=== PATIENT | male | born 1955 | race Caucasian/White ===

== ENCOUNTER 2017-08-09 15:17 | Observation (INO) | payer BC ==
[2017-08-09] MEDS ORDERED: ASPIRIN 81 MG TABLET, CHEWABLE PO ONE (15:42)
--- NOTE | 2017-08-09 15:43 | ER Document Report ---
ED Medical Screen (RME) - General Chief Complaint: Chest Pain Stated Complaint: CHEST PAIN Time Seen by Provider: 08/09/17 15:41 Notes: Patient states he has had chest pain today that goes to his right jaw. He states he has had a stress test several years ago that was normal but nothing recent. He states he did not feel sweaty nauseous or short of breath with the pain. He states that he does not smoke. He has diabetes. no htn TRAVEL OUTSIDE OF THE [place] IN LAST 30 DAYS: No - Related Data Allergies/Adverse Reactions: No Known Allergies Allergy (Verified 08/09/17 15:25) Past Medical History - Social History Chew tobacco use (# tins/day): No Frequency of alcohol use: None Drug Abuse: None Endocrine Medical History: Reports: Hx Diabetes Mellitus Type 2 Renal/ Medical History: Denies: Hx Peritoneal Dialysis GI Medical History: Reports: Hx Diverticulitis. Denies: Hx Ulcerative Colitis - Immunizations Hx Diphtheria, Pertussis, Tetanus Vaccination: Yes - <5 years Physical Exam - Vital signs Vitals: Temp Pulse Resp BP Pulse Ox 97.9 F 72 14 132/90 H 97 08/09/17 15:25 08/09/17 15:25 08/09/17 15:25 08/09/17 15:25 08/09/17 15:25 Course - Vital Signs Vital signs: Temp Pulse Resp BP Pulse Ox 97.9 F 72 14 132/90 H 97 08/09/17 15:25 08/09/17 15:25 08/09/17 15:25 08/09/17 15:25 08/09/17 15:25
[2017-08-09 16:06] LABS: ABSOLUTE BASOPHILS # (AUTO) 0.1 10^3/uL (0.0-0.2); ABSOLUTE EOSINOPHILS # (AUTO) 0.1 10^3/uL (0.0-0.6); ABSOLUTE LYMPHOCYTES (AUTO) 2.4 10^3/uL (0.5-4.7); ABSOLUTE MONOCYTES (AUTO) 0.5 10^3/uL (0.1-1.4); ABSOLUTE NEUT (AUTO) 5.2 10^3/uL (1.7-8.2); BASOPHILS % (AUTO) 0.9 % (0-2); EOSINOPHILS % (AUTO) 1.7 % (0-6); HEMATOCRIT 44.4 % (37.9-51.0); HEMOGLOBIN 15.8 g/dL (13.5-17.0); LYMPHOCYTES % (AUTO) 28.5 % (13-45); MEAN CORPUSCULAR HEMOGLOBIN 29.7 pg (27.0-33.4); MEAN CORPUSCULAR HGB CONC 35.5 g/dL (32.0-36.0); MEAN CORPUSCULAR VOLUME 84 fl (80-97); MONOCYTES % (AUTO) 6.1 % (3-13); RED BLOOD COUNT 5.31 10^6/uL (4.35-5.55); RED CELL DISTRIBUTION WIDTH 13.5 % (11.5-14.0); SEGMENTED NEUTROPHILS % (AUTO) 62.8 % (42-78); WHITE BLOOD COUNT 8.3 10^3/uL (4.0-10.5)
--- NOTE | 2017-08-09 16:13 | RADIOLOGY REPORT (SQ) ---
EXAM DESCRIPTION: CHEST PA/LAT COMPLETED DATE/TIME: 08/09/2017 3:59 pm REASON FOR STUDY: cp COMPARISON: 01/16/2016 EXAM PARAMETERS: NUMBER OF VIEWS: two views TECHNIQUE: Digital Frontal and Lateral radiographic views of the chest acquired. RADIATION DOSE: NA LIMITATIONS: none FINDINGS: LUNGS AND PLEURA: No opacities, masses or pneumothorax. No pleural effusion. MEDIASTINUM AND HILAR STRUCTURES: No masses or contour abnormalities. HEART AND VASCULAR STRUCTURES: Heart normal size. No evidence for failure. BONES: No acute findings. HARDWARE: None in the chest. OTHER: No other significant finding. IMPRESSION: NO SIGNIFICANT RADIOGRAPHIC FINDING IN THE CHEST. TECHNICAL DOCUMENTATION: JOB ID: [id number] [employer]- All Rights Reserved
[2017-08-09 16:27] LABS: ALANINE AMINOTRANSFERASE 44 U/L (21-72); ALBUMIN 4.4 g/dL (3.5-5.0); ALKALINE PHOSPHATASE 120 U/L (38-126); ANION GAP 16 (5-19); ASPARTATE AMINO TRANSFERASE 25 U/L (17-59); BILIRUBIN,DIRECT 0.3 mg/dL (0.0-0.4); BILIRUBIN,TOTAL 0.8 mg/dL (0.2-1.3); BLOOD UREA NITROGEN 16 mg/dL (7-20); CALCIUM 9.4 mg/dL (8.4-10.2); CARBON DIOXIDE 23 mmol/L (22-30); CHLORIDE 99 mmol/L (98-107); CREATININE RESULT 0.86 mg/dL (0.52-1.25); GLUCOSE 169 mg/dL (75-110); POTASSIUM 4.1 mmol/L (3.6-5.0); SODIUM 137.7 mmol/L (137-145)
--- NOTE | 2017-08-09 16:58 | ER Document Report ---
ED Cardiac - General Chief Complaint: Chest Pain Stated Complaint: CHEST PAIN Time Seen by Provider: 08/09/17 15:41 Notes: The patient is a 61-year-old male, past medical history NIDDM, 2 prior spontaneous PTX, family history of congestive heart failure in father, presents with substernal chest tightness with radiation to his right jaw started while he was at rest at 14:45 earlier today. He had this 15 years ago and had a negative stress test. Patient was given aspirin and it resolved. He denies any current chest pain. Patient denies shortness of breath, leg swelling, cough , nausea, vomiting, back pain or fevers. TRAVEL OUTSIDE OF THE [place] IN LAST 30 DAYS: No - Related Data Allergies/Adverse Reactions: No Known Allergies Allergy (Verified 08/09/17 15:25) Past Medical History - General Information source: Patient - Social History Smoking Status: Never Smoker Chew tobacco use (# tins/day): No Frequency of alcohol use: None Drug Abuse: None Family History: CAD - Father Patient has suicidal ideation: No Patient has homicidal ideation: No Endocrine Medical History: Reports: Hx Diabetes Mellitus Type 2 Renal/ Medical History: Denies: Hx Peritoneal Dialysis GI Medical History: Reports: Hx Diverticulitis. Denies: Hx Ulcerative Colitis - Immunizations Hx Diphtheria, Pertussis, Tetanus Vaccination: Yes - <5 years Review of Systems - Review of Systems Notes: REVIEW OF SYSTEMS: CONSTITUTIONAL: -fevers, -chills EENT: -eye pain, -difficulty swallowing, -nasal congestion CARDIOVASCULAR: +chest pain, -syncope. RESPIRATORY: -cough, -SOB GASTROINTESTINAL: -abdominal pain, - nausea, -vomiting, -diarrhea GENITOURINARY: -dysuria, -hematuria MUSCULOSKELETAL: -back pain, -neck pain SKIN: -rash or skin lesions. HEMATOLOGIC: -easy bruising or bleeding. LYMPHATIC: -swollen, enlarged glands. NEUROLOGICAL: -altered mental status or loss of consciousness, -headache, - neurologic symptoms PSYCHIATRIC: -anxiety, -depression. ALL OTHER SYSTEMS REVIEWED AND NEGATIVE. Physical Exam - Vital signs Vitals: Temp Pulse Resp BP Pulse Ox 97.9 F 72 14 132/90 H 97 08/09/17 15:25 08/09/17 15:25 08/09/17 15:25 08/09/17 15:25 08/09/17 15:25 - Notes Notes: PHYSICAL EXAMINATION: GENERAL: Well-appearing, well-nourished and in no acute distress. HEAD: Atraumatic, normocephalic. EYES: Pupils equal round and reactive to light, extraocular movements intact, sclera anicteric, conjunctiva are normal. ENT: nares patent, oropharynx clear without exudates. Moist mucous membranes. NECK: Normal range of motion, supple without lymphadenopathy LUNGS: Breath sounds clear to auscultation bilaterally and equal. No wheezes rales or rhonchi. HEART: Regular rate and rhythm without murmurs ABDOMEN: Soft, nontender, normoactive bowel sounds. No guarding, no rebound. No masses appreciated. EXTREMITIES: Normal range of motion, no pitting or edema. No cyanosis. NEUROLOGICAL: Cranial nerves grossly intact. Normal speech, normal gait. Normal sensory and motor exams. PSYCH: Normal mood, normal affect. SKIN: Warm, Dry, normal turgor, no rashes or lesions noted. Course - Re-evaluation Re-evalutation: Patient is currently chest pain-free in the ER. His EKG shows borderline T- wave abnormalities in the inferior leads, but no evidence of a STEMI. His first troponin is negative and rest of blood work is also unremarkable. His chest x-ray does not show any acute abnormalities. His HEART score is 4 (1 for age, 1 for risk factors, 2 for story). His story is not consistent with PE or aortic dissection at this time. Patient requires observation admission for further evaluation and treatment of his chest pain. He received ASA in the ER. - Vital Signs Vital signs: Temp Pulse Resp BP Pulse Ox 97.9 F 72 14 132/90 H 97 08/09/17 15:25 08/09/17 15:25 08/09/17 15:25 08/09/17 15:25 08/09/17 15:25 - Laboratory Result Diagrams: 08/09/17 15:46 08/09/17 15:46 Laboratory results interpreted by me: 08/09/17 15:46 Glucose 169 H - Diagnostic Test Radiology reviewed: Image reviewed, Reports reviewed Radiology results interpreted by me: CXR: NAD - EKG Interpretation by Me EKG shows normal: Sinus rhythm, [place], Intervals, QRS Complexes When compared to previous EKG there are: Previous EKG unavailable Additional EKG results interpreted by me: T-wave inversions in inferior leads Discharge - Discharge Clinical Impression: Chest pain Qualifiers: Chest pain type: unspecified Qualified Code(s): R07.9 - Chest pain, unspecified Condition: Stable Disposition: ADMITTED OBSERVATION Admitting Provider: [facility] Unit Admitted: Telemetry
[2017-08-09] MEDS ORDERED: OXYCODONE-ACETAMINOPHEN 5-325 MG TABLET PO PRN (17:37)
[2017-08-09] MEDS ORDERED: NORMAL SALINE 1000 ML 1,000 ML IV PRN (17:37)
[2017-08-09] MEDS ORDERED: ACETAMINOPHEN 325 MG TABLET PO PRN (17:37)
[2017-08-09] MEDS ORDERED: DEXTROSE 50%-WATER 25 GM/50 ML DISP.SYRIN IV PRN ×4 (17:42→17:44)
[2017-08-09] MEDS ORDERED: DEXTROSE 40% GEL 15 GM TUBE PO PRN ×5 (17:42→23:11)
[2017-08-09] MEDS ORDERED: GLUCAGON,HUMAN RECOMB 1 MG INJ SUBCUT PRN (17:42)
[2017-08-09] MEDS ORDERED: INSULIN REG, HUMAN 100 UNIT/ML 3 ML VIAL (PYX) SUBCUT PRN (17:44)
[2017-08-09] MEDS ORDERED: GLUCAGON,HUMAN RECOMB 1 MG INJ IM PRN ×2 (17:44→23:11)
[2017-08-09] MEDS ORDERED: NITROGLYCERIN 0.4 MG/TAB 25 TAB/BOTTLE SL PRN (17:56)
--- NOTE | 2017-08-09 17:56 | PDOC H&P ---
History of Present Illness Admission Date/PCP: 08/09/17 17:04 Patient complains of: chest pain at rest History of Present Illness: OBED FELDER is a 61 year old male presents to the hospital with complaint of chest pain at rest today that lasted for 30 mins. Pt states that it was sternal pain. Pt states that he has had chest pain before about 6 months ago. Pt states that he was at rest when that chest pain occurred. Pt states that has had a stress test 15 years ago. Pt states that he felt he should come to the hospital to have this checked out. Pt states that chest pain radiated to his jaw. Pt states that he did feel a little short of breath as well. Past Medical History Cardiac Medical History: Reports: Hyperlipidema Pulmonary Medical History: Reports: Other - Spontaneous Pneumothorax Endocrine Medical History: Reports: Diabetes Mellitus Type 2 GI Medical History: Reports: Diverticulitis Denies: Ulcerative Colitis Social History Smoking Status: Former Smoker - Stopped 15 years ago Frequency of Alcohol Use: Occasional Hx Recreational Drug Use: No Drugs: None Family History Family History: CAD - Father Parental Family History Reviewed: Yes Children Family History Reviewed: Yes Sibling(s) Family History Reviewed.: Yes Medication/Allergy Home Medications: Metformin HCl [Glucophage 500 mg Tablet] 1,000 mg PO BID 01/13/16 Omeprazole [Prilosec] 40 mg PO QAM 01/13/16 Allergies/Adverse Reactions: No Known Allergies Allergy (Verified 08/09/17 15:25) Review of Systems Constitutional: ABSENT: chills, fever(s), headache(s), weight gain, weight loss Eyes: ABSENT: visual disturbances Ears: ABSENT: hearing changes Cardiovascular: PRESENT: chest pain. ABSENT: dyspnea on exertion, edema, orthropnea, palpitations Respiratory: PRESENT: dyspnea. ABSENT: cough, hemoptysis Gastrointestinal: ABSENT: abdominal pain, constipation, diarrhea, hematemesis, hematochezia, nausea, vomiting Genitourinary: ABSENT: dysuria, hematuria Musculoskeletal: ABSENT: joint swelling Integumentary: ABSENT: rash, wounds Neurological: ABSENT: abnormal gait, abnormal speech, confusion, dizziness, focal weakness, syncope Psychiatric: ABSENT: anxiety, depression, homidical ideation, suicidal ideation Endocrine: ABSENT: cold intolerance, heat intolerance, polydipsia, polyuria Hematologic/Lymphatic: ABSENT: easy bleeding, easy bruising Physical Exam Vital Signs: Temp Pulse Resp BP Pulse Ox 97.9 F 72 14 132/90 H 97 08/09/17 15:25 08/09/17 15:25 08/09/17 15:25 08/09/17 15:25 08/09/17 15:25 General appearance: PRESENT: no acute distress, well-developed, well-nourished Head exam: PRESENT: atraumatic, normocephalic Eye exam: PRESENT: conjunctiva pink, EOMI, PERRLA. ABSENT: scleral icterus Ear exam: PRESENT: normal external ear exam Mouth exam: PRESENT: moist, tongue midline Neck exam: ABSENT: carotid bruit, JVD, lymphadenopathy, thyromegaly Respiratory exam: PRESENT: clear to auscultation zeus. ABSENT: rales, rhonchi, wheezes Cardiovascular exam: PRESENT: RRR. ABSENT: diastolic murmur, rubs, systolic murmur Pulses: PRESENT: normal dorsalis pedis pul Vascular exam: PRESENT: normal capillary refill GI/Abdominal exam: PRESENT: normal bowel sounds, soft. ABSENT: distended, guarding, mass, organolmegaly, rebound, tenderness Rectal exam: PRESENT: deferred Extremities exam: PRESENT: full ROM. ABSENT: calf tenderness, clubbing, pedal edema Neurological exam: PRESENT: alert, awake, oriented to person, oriented to place , oriented to time, oriented to situation, CN II-XII grossly intact. ABSENT: motor sensory deficit Psychiatric exam: PRESENT: appropriate affect, normal mood. ABSENT: homicidal ideation, suicidal ideation Skin exam: PRESENT: dry, intact, warm. ABSENT: cyanosis, rash Results Impressions: Chest X-Ray 08/09/17 15:41 IMPRESSION: NO SIGNIFICANT RADIOGRAPHIC FINDING IN THE CHEST. Assessment & Plan - Diagnosis (1) Chest pain Qualifiers: Chest pain type: unspecified Qualified Code(s): R07.9 - Chest pain, unspecified Is this a current diagnosis for this admission?: Yes Plan: Will check cardiac markers, Echo, stress test in am, and consult Cardiology. (2) DM type 2 (diabetes mellitus, type 2) Is this a current diagnosis for this admission?: Yes Plan: Will order SSI. Will check HbgA1c. (3) HLD (hyperlipidemia) Is this a current diagnosis for this admission?: Yes Plan: Will check lipid profile. (4) Obesity (BMI 30.0-34.9) Is this a current diagnosis for this admission?: Yes Plan: Discuss importance of dietary changes. (5) Spontaneous pneumothorax Is this a current diagnosis for this admission?: No Plan: History of spontaneous pneumothorax: Supportive care. (6) DVT prophylaxis Is this a current diagnosis for this admission?: Yes Plan: SCDs - Time Time Spent: 30 to 50 Minutes
[2017-08-09 19:03] LABS: CREATINE KINASE MB 1.12 ng/mL (<4.55)
[2017-08-09 19:07] LABS: TROPONIN I < 0.012 ng/mL
[2017-08-09] MEDS ORDERED: ATORVASTATIN CALCIUM 40 MG TABLET PO SCH (22:00)
[2017-08-09] MEDS: FAMOTIDINE 20 MG TABLET PO SCH (22:27)
--- NOTE | 2017-08-09 22:46 | PDOC CONSULTATION ---
Consultation Consult Date: 08/09/17 Attending physician:: JOSE MULLINS Consult reason:: Chest pain History of Present Illness Admission Date/PCP: 08/09/17 17:04 Patient complains of: Chest pain History of Present Illness: OEBD FELDER is a 61 year old male presents to the hospital with complaint of chest pain at rest today that lasted for 30 mins. Pt states that it was sternal pain. Pt states that he has had chest pain before about 6 months ago. Pt states that he was at rest when that chest pain occurred. Pt states that has had a stress test 15 years ago. Pt states that he felt he should come to the hospital to have this checked out. Pt states that chest pain radiated to his jaw. Pt states that he did feel a little short of breath as well. There is no definite precipitating factors. Average duration of discomfort is about 30 minutes. Apart from shortness of breath, there is no associated symptoms. Patient denied any exertional component to it. Patient does give history of reflux but currently on medication for it. Patient denied any history of anxiety disorder or gallbladder problems. Past Medical History Cardiac Medical History: Reports: Hyperlipidema Pulmonary Medical History: Reports: Other - Spontaneous Pneumothorax Endocrine Medical History: Reports: Diabetes Mellitus Type 2 GI Medical History: Reports: Diverticulitis, Gastroesophageal Reflux Disease Denies: Ulcerative Colitis Social History Information Source: Patient Smoking Status: Former Smoker Frequency of Alcohol Use: Occasional Hx Recreational Drug Use: No Drugs: None - Advance Directive Resuscitation Status: Full Code Family History Family History: CAD - Father Parental Family History Reviewed: Yes Children Family History Reviewed: Yes Sibling(s) Family History Reviewed.: Yes Medication/Allergy Home Medications: Metformin HCl [Glucophage 500 mg Tablet] 1,000 mg PO BID 01/13/16 Omeprazole [Prilosec] 40 mg PO QAM 01/13/16 Atorvastatin Calcium [Lipitor 40 mg Tablet] 40 mg PO QHS #30 tablet 08/10/17 Glyburide [Diabeta 5 mg Tablet] 5 mg PO QAM #30 tablet 08/10/17 Allergies/Adverse Reactions: No Known Allergies Allergy (Verified 08/09/17 15:25) Review of Systems Review of Systems: Please see history of present illness and past medical history as wall. Constitutional: No fever or chills reported. Head : No recent chronic headaches, recent head injury. Eyes: No recent eye pain, diplopia, redness, discharge, acute visual changes. Ears: No recent chronic ear pain, acute hearing loss, ear discharge. Oral cavity: No recent ulcerations, bleeding, oral cavity discomfort. Neck: No recent acute neck pain reported. Hematologic: No recent easy bruising or bleeding or hematologic malignancy reported. Lymphatic: No recent lymphatic malignancy, chronic lymphadenopathy reported yet Cardiovascular system review: See history of present illness. Respiratory system review: No recent chronic cough, hemoptysis, blood clots in the lungs reported. Mild Shortness of breath on exertion Gastrointestinal system review: Negative for any recent acute or chronic abdominal pain, hematemesis, melena, recent change in bowel habits. Genitourinary system review: No recent acute or chronic hematuria, flank pain, UTI etc. reported. Skin system review: Negative for any recent abnormal bruising, no rash, no pruritus reported. Neurologic: No prior history of strokes, mini strokes, seizure disorder. Psychologic: No history of major psychosis or major depression reported. Musculoskeletal: Minor aches and pains reported. No acute joint swelling reported. Endocrine: No recent polyuria, polydipsia, recent heat or cold intolerance. Physical Exam Vital Signs: Temp Pulse Resp BP Pulse Ox 97.9 F 72 12 135/83 H 95 08/09/17 15:25 08/09/17 15:25 08/09/17 18:15 08/09/17 18:15 08/09/17 18:15 Exam: GENERAL: well-nourished and in no acute distress. Alert and oriented x3 HEAD: Atraumatic, normocephalic. EYES: Pupils equal round and reactive to light, extraocular movements intact, sclera anicteric, conjunctiva are normal. ENT: TMs normal, nares patent, oropharynx clear without exudates. Moist mucous membranes. No oral ulcerations or bleeding gums noted NECK: supple without lymphadenopathy. Trachea is central. No cervical or axillary lymphadenopathy noted. Carotids are 2+, JVD WNL LUNGS: Respiration seems nonlabored, no significant accessory muscle action noted. Breath sounds clear to auscultation bilaterally and equal noted. No wheezes rales or rhonchi noted. No significant dullness noted on percussion. CHEST: Palpation of the chest wall shows no significant chest wall tenderness. No other significant abnormalities noted. HEART: [place] [employer], No PSH, 1/6 [place] aortic area, 1/6 [place] systolic murmur mitral area, no rubs, no gallops. ABDOMEN: Soft, no significant tenderness appreciated, normoactive bowel sounds. No guarding, no rebound. No rigidity noted . No masses appreciated. EXTREMITIES: Pedal pulses are 1-2+, no calf tenderness noted. No clubbing or cyanosis.trace to 1+ pedal edema noted NEUROLOGICAL: Focused neurological exam showed no significant neurologic deficit. Normal speech, no focal weakness appreciated. PSYCH: Normal mood, normal affect. Judgment and insight within normal limits. SKIN: No significant ecchymosis, rash, ulcerations or signs of pruritus noted. MUSCULOSKELETAL EXAM: No significant joint swelling noted. Results Laboratory Results: 08/09/17 18:03 CK-MB (CK-2) 1.12 Troponin I < 0.012 EKG Comments: Showed sinus rhythm, no acute ST-T wave changes noted Impressions: Chest X-Ray 08/09/17 15:41 IMPRESSION: NO SIGNIFICANT RADIOGRAPHIC FINDING IN THE CHEST. Assessment & Plan - Diagnosis (1) Chest pain Qualifiers: Chest pain type: unspecified Qualified Code(s): R07.9 - Chest pain, unspecified Is this a current diagnosis for this admission?: Yes (2) DM type 2 (diabetes mellitus, type 2) Qualifiers: Diabetes mellitus complication status: without complication Diabetes mellitus long-term insulin use: unspecified digital marketing assistant insulin use status Qualified Code(s): E11.9 - Type 2 diabetes mellitus without complications Is this a current diagnosis for this admission?: Yes (3) HLD (hyperlipidemia) Is this a current diagnosis for this admission?: Yes (4) Obesity (BMI 30.0-34.9) Is this a current diagnosis for this admission?: Yes (5) SOB (shortness of breath) Is this a current diagnosis for this admission?: Yes - Notes Notes: Chest pain: Patient has some typical and atypical features of chest pain. Cardiac enzymes so far has been negative. Electrocardiogram did not show any definitive ST segment changes. Multiple differential diagnoses exist in this patient. In descending order of probability this includes underlying coronary artery disease, gastroesophageal reflux, musculoskeletal pain, referred pain from elsewhere, anxiety panic disorder etc.Patient has significant cardiac risk factors, which indicates that there is a intermediate probability of chest discomfort coming from underlying CAD. Feel that it would need to be evaluated further. Discussed evaluation to assess this. In this regard risk benefits of nuclear stress test and other alternative processes were discussed in detail. The patient prefers to undergo nuclear stress test. The small risk of radiation , myocardial infarction, , cardiac arrhythmias, respiratory distress etc. were discussed. Patient understood the risks and gave informed consent. Nuclear stress test was therefore scheduled. For risk evaluation, patient is also being scheduled for a 2-D echocardiogram. Patient questions were answered. - Time Time Spent: 30 to 50 Minutes - More than 50% of the time spent coordinating care , discussing management plans with involved caregivers. Management plans discussed with involved personnels. Medical decision making was of moderate to high complexity, patient's has multiple comorbidities.
[2017-08-09 23:08] LABS: CHOLESTEROL 227.27 mg/dL (0-200); Direct HDL 31 mg/dL (>40)
[2017-08-09] MEDS ORDERED: DEXTROSE 50%-WATER SYRINGE 12.5 GM/25 ML DOSE IV PRN (23:11)
[2017-08-09] MEDS ORDERED: DEXTROSE 40% GEL 15 GM TUBE X 2 PO PRN (23:11)
[2017-08-09] MEDS ORDERED: DEXTROSE 50%-WATER SYRINGE 25 GM/50 ML DOSE IV PRN (23:11)
[2017-08-09 23:21] LABS: TRIGLYCERIDES 615 mg/dL (<150)
[2017-08-09 23:22] LABS: DIRECT LDL 31 mg/dL (<100)
[2017-08-09] MEDS: INSULIN LISPRO 100 UNIT/ML 3 ML VIAL SUBCUT PRN (23:33)
--- NOTE | 2017-08-10 00:01 | EKG REPORT ---
SEVERITY:- BORDERLINE ECG - SINUS RHYTHM BORDERLINE T ABNORMALITIES, DIFFUSE LEADS : Confirmed by: Roberta Rogers 10-Aug-2017 00:00:45
[2017-08-10 01:21] LABS: CREATINE KINASE MB 0.74 ng/mL (<4.55)
[2017-08-10 01:23] LABS: TROPONIN I < 0.012 ng/mL
[2017-08-10 06:49] LABS: ANION GAP 14 (5-19); BLOOD UREA NITROGEN 15 mg/dL (7-20); CALCIUM 8.9 mg/dL (8.4-10.2); CARBON DIOXIDE 23 mmol/L (22-30); CHLORIDE 104 mmol/L (98-107); CHOLESTEROL 188.79 mg/dL (0-200); CREATININE RESULT 0.84 mg/dL (0.52-1.25); Direct HDL 28 mg/dL (>40); GLUCOSE 189 mg/dL (75-110); MAGNESIUM 1.7 mg/dL (1.6-2.3); POTASSIUM 4.5 mmol/L (3.6-5.0); SODIUM 140.5 mmol/L (137-145); TRIGLYCERIDES 473 mg/dL (<150)
[2017-08-10 07:01] LABS: DIRECT LDL 75 mg/dL (<100)
[2017-08-10 07:02] LABS: CREATINE KINASE MB 0.69 ng/mL (<4.55)
[2017-08-10 07:08] LABS: TROPONIN I < 0.012 ng/mL
[2017-08-10 07:22] LABS: THYROID STIMULATING HORMONE 1.63 uIU/mL (0.47-4.68)
[2017-08-10] MEDS: INSULIN LISPRO 100 UNIT/ML 3 ML VIAL SUBCUT PRN ×2 (08:58→11:45)
--- NOTE | 2017-08-10 09:15 | EKG REPORT ---
SEVERITY:- NORMAL ECG - SINUS RHYTHM : Confirmed by: Roberta Rogers 10-Aug-2017 09:14:56
[2017-08-10] MEDS ORDERED: REGADENOSON INJ 0.4 MG/5 ML DISP.SYRIN IV ONE (11:34)
[2017-08-10] MEDS ORDERED: AMINOPHYLLINE INJ/PF 250 MG/10 ML SDV IV ONE (11:34)
[2017-08-10] MEDS: FAMOTIDINE 20 MG TABLET PO SCH (11:45)
[2017-08-10 14:30] VITALS: BP 119/76
--- NOTE | 2017-08-10 14:34 | PDOC DISCHARGE SUMMARY ---
General - Admit/Disc Date/PCP Admission Date/Primary Care Provider: 08/09/17 17:04 Discharge Date: 08/10/17 - Discharge Diagnosis (1) Chest pain Is this a current diagnosis for this admission?: Yes Summary: 2 D echo: EF Normal. Stress test demonstrated possible basal inferior wall abnormal that could represent artifact. Pt will follow up with Dr. Rogers. (2) DM type 2 (diabetes mellitus, type 2) Is this a current diagnosis for this admission?: Yes Summary: HBgA1C 10. Pt was placed on glyburide and told to exercise and change diet. (3) HLD (hyperlipidemia) Is this a current diagnosis for this admission?: Yes Summary: Pt was placed on Lipitor. (4) Obesity (BMI 30.0-34.9) Is this a current diagnosis for this admission?: Yes Summary: Encourage dietary changes. (5) Spontaneous pneumothorax Is this a current diagnosis for this admission?: No - Additional Information Resuscitation Status: Full Code Discharge Diet: Cardiac, Diabetic Discharge Activity: Activity As Tolerated Home Medications: Metformin HCl [Glucophage 500 mg Tablet] 1,000 mg PO BID 01/13/16 Omeprazole [Prilosec] 40 mg PO QAM 01/13/16 Atorvastatin Calcium [Lipitor 40 mg Tablet] 40 mg PO QHS #30 tablet 08/10/17 Glyburide [Diabeta 5 mg Tablet] 5 mg PO QAM #30 tablet 08/10/17 History of Present Illness Patient complains of: chest pain History of Present Illness: OBED FELDER is a 61 year old male presents to the hospital with complaint of chest pain at rest today that lasted for 30 mins. Pt states that it was sternal pain. Pt states that he has had chest pain before about 6 months ago. Pt states that he was at rest when that chest pain occurred. Pt states that has had a stress test 15 years ago. Pt states that he felt he should come to the hospital to have this checked out. Pt states that chest pain radiated to his jaw. Pt states that he did feel a little short of breath as well. Hospital Course Hospital Course: Pt was admitted for chest pain. Pt's troponins and EKG were normal. Pt had a stress test and Echo which did not demonstrate significant finding of CAD. Pt was arranged to follow up with Cardiology. Pt was noted to have a HGBA1C of 10. Pt was placed on glyburide. Pt was also found to have HLD and was placed on Lipitor. Physical Exam Vital Signs: Temp Pulse Resp BP Pulse Ox 97.2 F 63 16 132/81 H 96 08/10/17 08:31 08/10/17 08:31 08/10/17 08:31 08/10/17 08:31 08/10/17 08:31 Intake & Output 08/09/17 08/10/17 08/11/17 06:59 06:59 06:59 Intake Total 0 Balance 0 Weight 97.8 kg General appearance: PRESENT: no acute distress, well-developed, well-nourished Head exam: PRESENT: atraumatic, normocephalic Eye exam: PRESENT: conjunctiva pink, EOMI, PERRLA. ABSENT: scleral icterus Ear exam: PRESENT: normal external ear exam Mouth exam: PRESENT: moist, tongue midline Neck exam: ABSENT: carotid bruit, JVD, lymphadenopathy, thyromegaly Respiratory exam: PRESENT: clear to auscultation zeus. ABSENT: rales, rhonchi, wheezes Cardiovascular exam: PRESENT: RRR. ABSENT: diastolic murmur, rubs, systolic murmur Pulses: PRESENT: normal dorsalis pedis pul Vascular exam: PRESENT: normal capillary refill GI/Abdominal exam: PRESENT: normal bowel sounds, soft. ABSENT: distended, guarding, mass, organolmegaly, rebound, tenderness Rectal exam: PRESENT: deferred Extremities exam: PRESENT: calf tenderness Neurological exam: PRESENT: alert, awake, oriented to person, oriented to place , oriented to time, oriented to situation, CN II-XII grossly intact. ABSENT: motor sensory deficit Psychiatric exam: PRESENT: appropriate affect, normal mood. ABSENT: homicidal ideation, suicidal ideation Skin exam: PRESENT: dry, intact, warm. ABSENT: cyanosis, rash Results Laboratory Results: 08/10/17 06:05 08/10/17 08/10/17 06:05 06:05 Sodium 140.5 Potassium 4.5 Chloride 104 Carbon Dioxide 23 Anion Gap 14 BUN 15 Creatinine 0.84 Est GFR ( Amer) > 60 Est GFR (Non-Af Amer) > 60 Glucose 189 H Calcium 8.9 Magnesium 1.7 Triglycerides 473 H Cholesterol 188.79 LDL Cholesterol Direct 75 VLDL Cholesterol UNABLE TO CALCULATE HDL Cholesterol 28 L TSH 1.63 Free T4 1.21 08/09/17 08/10/17 08/10/17 18:03 00:28 06:05 CK-MB (CK-2) 1.12 0.74 0.69 Troponin I < 0.012 < 0.012 < 0.012 Impressions: Chest X-Ray 08/09/17 15:41 IMPRESSION: NO SIGNIFICANT RADIOGRAPHIC FINDING IN THE CHEST. Plan Time Spent: Less than 30 Minutes
--- NOTE | 2017-08-10 19:18 | DRAGON STRESS TEST REPORT ---
INTRAVENOUS LEXISCAN CARDIOLITE STRESS TEST USING SINGLE PHOTON EMMISION COMPUTERIZED TOMOGRAPHIC. DATE OF PROCEDURE: August 10, 2017 INDICATION : Chest pain CARDIAC RISK FACTORS: [dyslipidemia, tobacco abuse] RESTING EKG: Diabetes, dyslipidemia STRESS EKG: No significant changes noted with LexiScan bolus REASON FOR TERMINATION: Protocol. PROCEDURE REPORT: Baseline heart rate 65 beats per minute with blood pressure of 135/78. Patient had no significant complaints. Heart rate at 2 minutes post bolus 91 with a blood pressure of 144/77. 3 minutes post bolus heart rate 75 with blood pressure of 140/77. No significant EKG changes were noted. Patient had no significant complaints during the procedure or postprocedure. Patient injected with Aminophyllin 75 mg at 3 minutes or later after Lexiscan bolus. CONCLUSIONS: Normal EKG and hemodynamic response to IV LexiScan. NUCLEAR DATA: At rest the patient was given 14.72 millicuries of technetium 99 sestamibi injected intravenously. As per protocol rest gated SPECT images were obtained. Subsequently the patient was given intravenous LexiScan at a dose of 0.4 mg in 5 mL intravenously, followed by flush with normal saline. Subsequently the stress dose of 43.6 millicuries of technetium 99 sestamibi was injected intravenously. As per protocol stress gated images were obtained. NUCLEAR INTERPRETATION: Both raw and processed data were used for interpretation. Visual, qualitative, computer-generated quantitative data was used. There was good myocardial uptake of technetium compound. Motion artifact and soft tissue attenuations were noted. Increased visceral uptake was noted. No definitive areas of transient perfusion defect noted. Borderline decreased uptake noted in the basal inferior wall most likely related to diaphragmatic attenuation artifact differences but cannot rule out an area of mild ischemia. SDS of 1 therefore probably not significant. No definitive areas of fixed perfusion defect or scars noted. EKG gated imaging showed LV EF at 63 %, rest and stress gated EF similar visually. T. I D. ratio was 0.96. Lung heart ratio noted to be within normal limits 0.34. No significant extracardiac and abnormal radiotracer activities were noted. RV free wall uptake was noted to be WNL. IMPRESSION: Also refer to comments under nuclear interpretation. Also test results needs to be interpreted in the context of pretest probability. 1. There is no definitive scintigraphic evidence of LexiScan induced myocardial ischemia. Borderline decreased uptake noted in the basal inferior wall most likely related to diaphragmatic attenuation artifact differences but cannot rule out an area of mild ischemia. SDS of 1 therefore probably not significant even if ischemic. 2. There is no definitive scintigraphic evidence of myocardial infarction/scar. 3. EKG gated imaging shows left ventricular ejection fraction of approximately 63 %. 4. Clinical correlation requested as occasionally single vessel disease or balanced ischemia could be missed. In approximately 10% of the cases Lexiscan may not cause adequate vasodilatory stress. RECOMMENDATIONS: Aggressive risk factor modification, medical therapy. Clinical correlation with echocardiogram derived ejection fraction. Inability to exercise by itself can lead to increased cardiovascular event risks. Consider cardiology consultation and or follow-up if clinically indicated. I AM AVAILABLE FOR CARDIOLOGY CONSULTATION AND FOLLOWUP IF REQUESTED BY PMD Roberta Rogers M.D., [employer] footwear sales coordinator, Board certified in cardiovascular diseases, Nuclear cardiology, Echocardiography Cardiac CT and cardiac MRI Ph. [phone] [facility] HOSPITALElise
--- NOTE | 2017-08-10 19:55 | XCELERA REPORT ---
[address] [address] Transthoracic Echocardiogram Report Name: OBED FELDER Age: 61 yrs Gender: Male : 1955 Patient Status: Inpatient Patient Location: [address] [place] [address] Study Date: 08/10/2017 10:15 AM Height: 71 in Weight: 215 lb BSA: 2.2 m2 Procedure: A complete two-dimensional transthoracic echocardiogram was performed (2D, M-mode, spectral and color flow Doppler). The study was technically difficult with many images being suboptimal in quality. Reason For Study: chest pain Ordering Physician: JOSE MULLINS Performed By: Neela Butler Interpretation Summary The left ventricular ejection fraction is normal. There is mild concentric left ventricular hypertrophy. The left ventricle is grossly normal size. Doppler measurements suggest impaired left ventricular relaxation, which is associated with grade I/IV or mild diastolic dysfunction Regional wall motion abnormalities cannot be excluded due to limited visualization. The right ventricular systolic function is normal. The left atrial size is normal. The right atrium is normal. There is no mitral regurgitation noted. There is no mitral valve stenosis. No aortic regurgitation is present. There is no aortic valve stenosis There is a trace or physiologic amount of tricuspid regurgitation Tricuspid regurgitation jet envelope not well defined to measure RV systolic pressure accurately. The aortic root is not well visualized but is probably normal size. The inferior vena cava was not well visualized There is no pericardial effusion. MMode/2D Measurements & Calculations RVDd: 3.2 cm LVIDd: 5.2 cm FS: 23.5 % Ao root diam: 4.1 cm IVSd: 1.2 cm LVIDs: 4.0 cm EDV(Teich): 128.9 ml LVPWd: 0.97 cm ESV(Teich): 68.7 ml Ao root area: 13.0 cm2 EF(Teich): 46.7 % LA dimension: 3.7 cm Doppler Measurements & Calculations MV E max solitario: MV P1/2t max solitario: Ao V2 max: LV V1 max P.0 cm/sec 76.0 cm/sec 159.5 cm/sec 10.0 mmHg MV A max solitario: MV P1/2t: 78.9 msec Ao max PG: LV V1 max: 80.5 cm/sec 10.2 mmHg 158.4 cm/sec MV E/A: 0.96 MVA(P1/2t): 2.8 cm2 MV dec slope: 282.2 cm/sec2 PA V2 max: 112.5 cm/sec PA max P.1 mmHg Left Ventricle The left ventricle is grossly normal size. There is mild concentric left ventricular hypertrophy. The left ventricular ejection fraction is normal. Doppler measurements suggest impaired left ventricular relaxation, which is associated with grade I/IV or mild diastolic dysfunction. Regional wall motion abnormalities cannot be excluded due to limited visualization. Right Ventricle The right ventricle is grossly normal size. There is normal right ventricular wall thickness. The right ventricular systolic function is normal. Atria The right atrium is normal. The left atrial size is normal. There is no Doppler evidence for an interatrial shunt. Mitral Valve The mitral valve is grossly normal. There is no mitral valve stenosis. There is no mitral regurgitation noted. Aortic Valve The aortic valve is grossly normal. There is no aortic valve stenosis. No aortic regurgitation is present. Tricuspid Valve The tricuspid valve is not well visualized secondary to technical limitations. There is no tricuspid stenosis. There is a trace or physiologic amount of tricuspid regurgitation. Tricuspid regurgitation jet envelope not well defined to measure RV systolic pressure accurately. Pulmonic Valve The pulmonic valve is not well visualized. Great Vessels The aortic root is not well visualized but is probably normal size. The inferior vena cava was not well visualized. Effusions There is no pericardial effusion. : JOSE MULLINS Shyamal
--- NOTE | 2017-08-10 20:03 | PDOC PROGRESS REPORT ---
Subjective Progress Note for:: 08/10/17 Subjective:: Patient seems to be doing better with gradual improvement. Pt is denying any chest arm or neck discomfort. Patient denying any PND, orthopnea. Patient denied any sustained palpitations, dizziness, syncope, near syncope. Patient denying any fever chills. Patient denying any other significant discomfort. Patient is maintaining sinus rhythm. Review of systems: Rest review of systems negative. Medications: Medications have been reviewed. Nuclear stress test procedure was explained to the patient in detail. Risks benefits were discussed and informed consent was obtained. Alternatives were discussed. Patient informed that based on risk factors, physical exam, lab data findings and symptoms there is at least intermediate probability of underlying CAD. Nuclear stress test procedure was therefore scheduled. Physical Exam Vital Signs: Temp Pulse Resp BP Pulse Ox 97.2 F 63 16 119/76 96 08/10/17 14:27 08/10/17 14:27 08/10/17 14:27 08/10/17 14:27 08/10/17 14:27 Intake & Output 08/09/17 08/10/17 08/11/17 06:59 06:59 06:59 Intake Total 0 Balance 0 Weight 97.8 kg Exam: GENERAL: well-nourished and in no acute distress. Alert and oriented x3 HEAD: Atraumatic, normocephalic. EYES: Pupils equal round and reactive to light, extraocular movements intact, sclera anicteric, conjunctiva are normal. ENT: TMs normal, nares patent, oropharynx clear without exudates. Moist mucous membranes. No oral ulcerations or bleeding gums noted NECK: supple without lymphadenopathy. Trachea is central. No cervical or axillary lymphadenopathy noted. Carotids are 2+, JVD WNL LUNGS: Respiration seems nonlabored, no significant accessory muscle action noted. Breath sounds clear to auscultation bilaterally and equal noted. No wheezes rales or rhonchi noted. No significant dullness noted on percussion. CHEST: Palpation of the chest wall shows no significant chest wall tenderness. No other significant abnormalities noted. 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 ABDOMEN: Soft, no significant tenderness appreciated, normoactive bowel sounds. No guarding, no rebound. No rigidity noted . No masses appreciated. EXTREMITIES: Pedal pulses are 1-2+, no calf tenderness noted. No clubbing or cyanosis.trace to 1+ pedal edema noted NEUROLOGICAL: Focused neurological exam showed no significant neurologic deficit. Normal speech, no focal weakness appreciated. PSYCH: Normal mood, normal affect. Judgment and insight within normal limits. SKIN: No significant ecchymosis, rash, ulcerations or signs of pruritus noted. MUSCULOSKELETAL EXAM: No significant joint swelling noted. Results Laboratory Results: 08/10/17 06:05 08/10/17 08/10/17 06:05 06:05 Sodium 140.5 Potassium 4.5 Chloride 104 Carbon Dioxide 23 Anion Gap 14 BUN 15 Creatinine 0.84 Est GFR ( Amer) > 60 Est GFR (Non-Af Amer) > 60 Glucose 189 H Calcium 8.9 Magnesium 1.7 Triglycerides 473 H Cholesterol 188.79 LDL Cholesterol Direct 75 VLDL Cholesterol UNABLE TO CALCULATE HDL Cholesterol 28 L TSH 1.63 Free T4 1.21 08/09/17 08/10/17 08/10/17 18:03 00:28 06:05 CK-MB (CK-2) 1.12 0.74 0.69 Troponin I < 0.012 < 0.012 < 0.012 EKG Comments: Showed sinus rhythm, no acute ST-T wave changes noted Impressions: Chest X-Ray 08/09/17 15:41 IMPRESSION: NO SIGNIFICANT RADIOGRAPHIC FINDING IN THE CHEST. Assessment & Plan - Diagnosis (1) Chest pain Qualifiers: Chest pain type: unspecified Qualified Code(s): R07.9 - Chest pain, unspecified Is this a current diagnosis for this admission?: Yes (2) DM type 2 (diabetes mellitus, type 2) Qualifiers: Diabetes mellitus complication status: without complication Diabetes mellitus emt intermediate insulin use: unspecified emt intermediate insulin use status Qualified Code(s): E11.9 - Type 2 diabetes mellitus without complications Is this a current diagnosis for this admission?: Yes (3) HLD (hyperlipidemia) Is this a current diagnosis for this admission?: Yes (4) Obesity (BMI 30.0-34.9) Is this a current diagnosis for this admission?: Yes (5) SOB (shortness of breath) Is this a current diagnosis for this admission?: Yes - Notes Notes: Chest pain: This is felt to be noncardiac based on clinical evaluation, negative enzymes and relatively unremarkable stress test. Discussed with the patient that significant coronary artery disease could rarely be missed and therefore he needs to report any worsening symptoms. Nuclear stress test reports were discussed in detail. Diabetes: Under satisfactory control. Dyslipidemia: Continue statin therapy. Obesity: Patient has been encouraged in weight loss. Dyspnea: 2D echo results discussed. Patient noted to have normal LVEF and some diastolic dysfunction. - Time Time with patient: Greater than 35 minutes - Patient was seen multiple times. Total time exceeds 40 minutes. In the morning nuclear stress test procedure, risks benefits, alternatives were discussed. Patient seen during the stress test. Patient also seen after stress test when results were discussed with the patient in detail. Patient's questions were answered. Nuclear stress test results were discussed with the patient. Patient was informed that no definitive evidence of pharmacologic stress-induced ischemia noted. No definite fixed defects were noted. Patient informed that occasionally significant single vessel disease or balanced ischemia could be missed. However based on the current study results, would recommend aggressive risk factor modification and medical therapy. It may also be worthwhile to consider evaluation or empiric management of other causes of chest pain. Should no other cause be found and if persistent in having chest pain, then cardiac catheterization should be considered. Right now, recommendations are for aggressive risk factor modification and medical management. 2D echo results were also discussed. More than 50% of the time spent coordinating care, discussing management plans with involved caregivers. Management plans discussed with involved personnels. Medical decision making was of moderate to high complexity, patient's has multiple comorbidities. Medications reviewed and adjusted accordingly: Yes
== END 2017-08-10 14:46 | disposition home or self-care (01) ==
LOC: ER 15:17 → EH 17:04 → 5 18:58
PROVIDERS: ADMIT Emergency Medicine; ATTEND Emergency Medicine
DX: R07.89 Other chest pain (principal); E11.9 Type 2 diabetes mellitus without complications; E78.5 Hyperlipidemia, unspecified; E66.9 Obesity, unspecified; R06.02 Shortness of breath; K21.9 Gastro-esophageal reflux disease without esophagitis; I51.89 Other ill-defined heart diseases; Z68.30 Body mass index [BMI] 30.0-30.9, adult; Z87.09 Personal history of other diseases of the respiratory system; Z87.19 Personal history of other diseases of the digestive system; Z87.891 Personal history of nicotine dependence; Z82.49 Family history of ischemic heart disease and other diseases of the circulatory system; Z79.84 Long term (current) use of oral hypoglycemic drugs
CPT/HCPCS: 93005 ×2; 99285; 36415 ×2; 84439; 82553 ×2; 82962 ×2; 83735; 84443; 85025; 85610; 80048; 80053; 84484 ×2; 83036; 80061 ×2; 93306; 93017; 71020; 78452; 93010 ×2; A9500; J2785; J1815 ×3; J0280; Q9969